=== PATIENT | female | born 1990 | race African-American/Black ===

== ENCOUNTER 2022-04-02 08:43 | Emergency (ER) | payer SELFPAY ==
[2022-04-02] MEDS ORDERED: ACETAMINOPHEN 500 MG TAB ONE (09:26)
--- NOTE | 2022-04-02 09:43 | RAD REPORT ---
EXAM DESCRIPTION: RAD - Ribs Left - 04/02/2022 9:30 am CLINICAL HISTORY: Left rib pain FINDINGS: Mildly displaced fracture left tenth rib. Age is indeterminate and should be correlated cl inically
--- NOTE | 2022-04-02 10:20 | ER ---
Nurse's Notes [facility] Name: Liyah Patino Age: 31 yrs Sex: Female : 1990 Arrival Date: 04/02/2022 Time: 08:45 Bed Treatment Private MD: Diagnosis: Fracture of one rib, left side;9 weeks gestation of Presentation: 04/02 08:48 Chief complaint: Patient states: i think i bruised my rib. a few days ago. it felt hard tw2 to breathe. then we were on a trip on a golf cart and it started hurt on the LEFT rib area. i am 9 weeks . if i laugh or cough and it keeps trying to pop. and it hurts up in my LEFT clavicle area. i did take ibuprofen at 5 am. Coronavirus screen: At this time, the client does not indicate any symptoms associated with coronavirus-19. Ebola Screen: Patient denies travel to an Ebola-affected area in the 21 days before illness onset. Initial Sepsis Screen: Does the patient meet any 2 criteria? HR > 90 bpm. No. Patient's initial sepsis screen is negative. Does the patient have a suspected source of infection? No. Patient's initial sepsis screen is negative. Risk Assessment: Do you want to hurt yourself or someone else? Patient reports no desire to harm self or others. Onset of symptoms was April 02, 2022. 08:48 Method Of Arrival: Ambulatory tw2 08:48 Acuity: KEYANA 3 tw2 Triage Assessment: 08:51 General: Appears in no apparent distress. slender, well groomed, Behavior is calm, tw2 cooperative, appropriate for age. Pain: Complains of pain in left rib. Respiratory: Airway is patent Respiratory effort is even, unlabored, Respiratory pattern is regular, symmetrical. 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 - Social history:: Smoking status: Patient denies any tobacco usage or history of. Screenin:02 Abuse screen: Denies threats or abuse. Nutritional screening: No deficits noted. tw2 Tuberculosis screening: No symptoms or risk factors identified. Fall Risk None identified. Assessment: 09:03 Reassessment: provider at bedside at this time. tw2 09:43 General: Appears in no apparent distress. Behavior is calm, cooperative. Pain: iw Complains of pain in left lateral posterior chest and left lateral anterior chest Neuro: Level of Consciousness is awake, alert, obeys commands, Oriented to person, place, time, situation, Moves all extremities. Cardiovascular: Patient's skin is warm and dry. Respiratory: Respiratory effort is even, unlabored, Respiratory pattern is regular. Vital Signs: 08:48 BP 114 / 73; Pulse 93; Resp 17; Temp 98.1(O); Pulse Ox 98% on R/A; Weight 104.33 kg tw2 (R); Height 5 ft. 3 in. (160.02 cm); Pain 7/10; 12:10 BP 120 / 72; Pulse 80; Resp 16; Pulse Ox 100% on R/A; bm7 08:48 Body Mass Index 40.74 (104.33 kg, 160.02 cm) tw2 08:48 when its active. tw2 ED Course: 08:45 Patient arrived in ED. mr 08:50 Lebron Cordova PA is PHCP. cp 08:50 Buddy Washington DO is Attending Physician. cp 08:51 Triage completed. tw2 08:52 Arm band placed on. tw2 09:02 Bed in low position. Call light in reach. Adult w/ patient. tw2 09:10 Susan Patino, RN is Primary Nurse. iw 09:32 XRAY Ribs LEFT In Process Unspecified. EDMS 09:44 No provider procedures requiring assistance completed. Patient did not have IV access iw during this emergency room visit. 10:24 Urine Microscopic Only Sent. kc6 11:49 US Transvaginal Ob In Process Unspecified. EDMS Administered Medications: 09:41 Drug: Tylenol 1000 mg Route: PO; iw 10:00 Follow up: Response: No adverse reaction iw 12:10 Drug: Flexeril (cyclobenzaprine) 10 mg Route: PO; bm7 12:30 Follow up: Response: No adverse reaction iw Medication: 09:03 VIS not applicable for this client. tw2 Outcome: 10:20 Discharge ordered by MD. cp 12:50 Discharge ordered by MD. cp 13:14 Discharged to home ambulatory. iw 13:14 Condition: good 13:14 Discharge instructions given to patient, Instructed on discharge instructions, follow up and referral plans. Demonstrated understanding of instructions, follow-up care. 13:15 Patient left the ED. iw Signatures: Dispatcher [employer] MELONIEMT ChapmanKaty Irene, RN RN iw Lebron Cordova PA PA cp Wise, Tara, RN RN tw2 Charisse Haynes, RN RN bm7 Britt Chadwick kc6
--- NOTE | 2022-04-02 10:21 | EDPHYS ---
Physician Documentation [facility] Name: Liyah Patino Age: 31 yrs Sex: Female : 1990 Arrival Date: 04/02/2022 Time: 08:45 Bed Treatment Private MD: ED Physician Buddy Washington HPI: 04/02 09:10 This 31 yrs old Black Female presents to ER via Ambulatory with complaints of Rib pain. cp 09:10 The patient or guardian reports chest pain that is located primarily in the left lower cp lateral chest. 09:10 The pain does not radiate. Associated signs and symptoms: Pertinent positives: recent travel, Pertinent negatives: abdominal pain, cough, diaphoresis, lower extremity pain, lower extremity swelling, syncope, vomiting, trauma. The chest pain is described as constant. Severity of pain: in the emergency department the pain has improved mildly, took ibuprofen this morning. Patient reports she is 9 weeks and is on rode trip visiting from [place]. 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 - Social history:: Smoking status: Patient denies any tobacco usage or history of. ROS: 09:15 Constitutional: Negative for body aches, chills, fever, poor PO intake. cp 09:15 Cardiovascular: Positive for chest pain, of the left lower lateral chest, Negative for cp edema, palpitations. 09:15 Respiratory: Negative for cough, shortness of breath, wheezing. 09:15 Eyes: Negative for injury, pain, redness, and discharge. cp 09:15 ENT: Negative for drainage from ear(s), ear pain, sore throat, difficulty swallowing, difficulty handling secretions. 09:15 Abdomen/GI: Negative for abdominal pain, nausea, vomiting, and diarrhea. 09:15 Back: Negative for pain at rest, pain with movement. 09:15 Neuro: Negative for altered mental status, dizziness, headache, syncope, weakness. 09:15 : Negative for urinary symptoms, pelvic pain, vaginal bleeding, vaginal discharge. cp 09:15 All other systems are negative. Exam: 09:20 Constitutional: The patient appears in no acute distress, alert, awake, non-toxic, well cp developed, well nourished, uncomfortable. 09:20 Head/Face: Normocephalic, atraumatic. cp 09:20 Eyes: Periorbital structures: appear normal, Conjunctiva: normal, no exudate, no injection, Sclera: no appreciated abnormality, Lids and lashes: appear normal, bilaterally. 09:20 ENT: External ear(s): are unremarkable, Nose: is normal, Mouth: Lips: moist, Oral mucosa: moist, Posterior pharynx: Airway: no evidence of obstruction, patent. 09:20 Neck: ROM/movement: is normal, is supple, without pain, no range of motions limitations. 09:20 Chest/axilla: Inspection: normal, Palpation: crepitus, is not appreciated, tenderness, that is moderate, of the left lower lateral chest wall, that partially reproduces the patient's complaints. 09:20 Cardiovascular: Rate: normal, Rhythm: regular, Edema: is not appreciated, JVD: is not appreciated. 09:20 Respiratory: the patient does not display signs of respiratory distress, Respirations: normal, no use of accessory muscles, no retractions, labored breathing, is not present, Breath sounds: are clear throughout, no decreased breath sounds, no stridor, no wheezing. 09:20 Abdomen/GI: Inspection: abdomen appears normal, Bowel sounds: active, all quadrants, Palpation: abdomen is soft and non-tender, in all quadrants, rebound tenderness, is not appreciated, voluntary guarding, is not appreciated, involuntary guarding, is not appreciated. 09:20 Back: CVA tenderness, is absent. 09:20 Skin: cellulitis, is not appreciated, no rash present. no chest wall ecchymosis noted. 09:20 Neuro: Orientation: to person, place \T\ time. Mentation: is normal, Motor: moves all fours, strength is normal, Sensation: is normal, Gait: is steady, at a normal pace, without difficulty. Vital Signs: 08:48 BP 114 / 73; Pulse 93; Resp 17; Temp 98.1(O); Pulse Ox 98% on R/A; Weight 104.33 kg tw2 (R); Height 5 ft. 3 in. (160.02 cm); Pain 7/10; 12:10 BP 120 / 72; Pulse 80; Resp 16; Pulse Ox 100% on R/A; bm7 08:48 Body Mass Index 40.74 (104.33 kg, 160.02 cm) tw2 08:48 when its active. tw2 MDM: 09:04 Patient medically screened. cp 10:00 Differential diagnosis: costochondritis, pleurisy, pneumonia, pneumothorax, pulmonary cp embolus, rib fracture, rib contusion. 12:45 Data reviewed: vital signs, nurses notes, radiologic studies, plain films, ultrasound. cp Response to treatment: pain improved, and as a result, I will discharge patient. ED course: Patient requesting US to check . Denies vaginal bleeding at this time. 12:50 Test interpretation: by ED physician or midlevel provider: plain radiologic studies. cp 04/02 09:05 Order name: Urine Microscopic Only; Complete Time: 11:29 cp 04/02 10:24 Order name: Urine Dipstick-Ancillary; Complete Time: 11:29 EDMS 04/02 09:05 Order name: Urine Dipstick-Ancillary (obtain specimen); Complete Time: 10:24 cp 04/02 09:05 Order name: XRAY Ribs LEFT; Complete Time: 09:48 cp 04/02 09:48 Interpretation: Report reviewed. cp 04/02 09:05 Order name: Urine Test (obtain specimen); Complete Time: 10:24 cp 04/02 10:21 Order name: INCENTIVE SPIROMETRY cp 04/02 10:50 Order name: US Transvaginal Ob; Complete Time: 12:43 cp 04/02 10:50 Order name: NPO; Complete Time: 12:10 cp Administered Medications: 09:41 Drug: Tylenol 1000 mg Route: PO; iw 10:00 Follow up: Response: No adverse reaction iw 12:10 Drug: Flexeril (cyclobenzaprine) 10 mg Route: PO; bm7 12:30 Follow up: Response: No adverse reaction iw Disposition: 17:18 Co-signature as Attending Physician, Buddy Washington DO I agree with the assessment and ms3 plan of care. Disposition Summary: 04/02/22 12:50 Discharge Ordered Location: Home(04/02/22 12:50) cp Problem: new(04/02/22 12:50) cp Symptoms: have improved(04/02/22 12:50) cp Condition: Stable(04/02/22 12:50) cp Diagnosis - Fracture of one rib, left side(04/02/22 12:50) cp - 9 weeks gestation of cp Followup: cp - With: Private Physician - When: 2 - 3 days - Reason: Recheck today's complaints Discharge Instructions: - Discharge Summary Sheet cp - Care cp - Rib Fracture cp - First Trimester of cp - Form - Excuse from Work, School, or Physical Activity cp - How to Use an Incentive Spirometer cp Forms: - Medication Reconciliation Form cp - Thank You Letter cp - Antibiotic Education cp - Prescription Opioid Use cp - Family Work Release cp Prescriptions: - Cyclobenzaprine 10 mg Oral Tablet - take 1 tablet by ORAL route every 8 hours As needed; 20 tablet; Refills: 0, cp Product Selection Permitted Signatures: Dispatcher [employer] Susan Herrera, RN RN iw Lebron Cordova PA PA cp Sophia Jain RN RN tw2 Buddy Washington DO DO ms3 Charisse Haynes, RN RN bm7 Corrections: (The following items were deleted from the chart) 10:50 10:20 Home cp cp 10:50 10:20 new cp cp 10:50 10:20 have improved cp cp 10:50 10:20 Stable cp cp 10:50 10:20 Fracture of one rib, left side - tenth rib cp cp
[2022-04-02 10:24] LABS: Urine Blood Negative (Negative); Urine Glucose Negative (Negative); Urine Protein Negative (Negative); Urine Specific Gravity >=1.030 (1.005-1.030); Urine pH 5.5 (5.0-7.0)
[2022-04-02] MEDS ORDERED: CYCLOBENZAPRINE 10 MG TAB ONE (10:37)
[2022-04-02 10:54] LABS: Urine Bacteria <20 /HPF (<20); Urine Mucus 3+ /HPF (None Seen); Urine RBC <5 /HPF (None Seen)
--- NOTE | 2022-04-02 12:41 | RAD REPORT ---
EXAM DESCRIPTION: US - Transvaginal OB - 04/02/2022 11:48 am CLINICAL HISTORY: with pelvic pain COMPARISON: None. FINDINGS: The uterus measures 10 x 7 x 8 centimeters. A normal appearing gestational sac is present within the endometrium. Within this is a yolk sac and pole with a crown-rump length 3 centimet ers. Cardiac activity 167 beats per minute Nabothian cysts within the cervix Right and left ovary appear normal. The right and left adnexa are unremarkable No significant free fluid is seen. IMPRESSION: Single live intrauterine with an estimated gestational age 9 weeks 6 days JERZY 10/30/2022
[2022-04-02 14:30] VITALS: BP 114/73; TEMP 98.1; O2SAT 98
== END 2022-04-02 13:15 | disposition home or self-care (01) ==
LOC: ER 08:43
DX: O9A.211 Injury, poisoning and certain other consequences of external causes complicating pregnancy, first trimester (principal); S22.32XA Fracture of one rib, left side, initial encounter for closed fracture; Z3A.09 9 weeks gestation of pregnancy
CPT/HCPCS: 76817; 81003; 81015